=== PATIENT | male | born 1980 | race Caucasian/White ===

== ENCOUNTER → 2020-10-16 10:16 | Outpatient (BNVA) | payer SELFPAY | PROVIDERS: Visit Provider Orthopaedic Surgery | DX: M54.5 Low back pain (principal); M47.897 Other spondylosis, lumbosacral region | CPT/HCPCS: 72110 ==

== ENCOUNTER 2020-10-29 06:00 | Outpatient (RCR) | payer OTHER, SELFPAY | END 2020-11-13 23:59 | disposition home or self-care (01) | LOC: GPT 06:00 | PROVIDERS: Referring Provider Orthopaedic Surgery; Visit Provider Orthopaedic Surgery | DX: M48.061 Spinal stenosis, lumbar region without neurogenic claudication (principal) | CPT/HCPCS: 97032; 97110; 97161; 97530; 97760 ==

== ENCOUNTER 2020-11-14 06:00 | Outpatient (RCR) | payer OTHER, SELFPAY | END 2020-12-14 23:59 | disposition home or self-care (01) | LOC: GPT 06:00 | PROVIDERS: Referring Provider Orthopaedic Surgery; Visit Provider Orthopaedic Surgery | DX: M48.061 Spinal stenosis, lumbar region without neurogenic claudication (principal) | CPT/HCPCS: 97110; 97164; 97530 ==

== ENCOUNTER 2020-11-21 07:34 | Outpatient (CLI) | payer OTHER, SELFPAY ==
--- NOTE | 2020-11-21 08:00 | MR_ITS ---
WS: [id number] MRI LUMBAR SPINE NONCONTRAST TECHNIQUE: Sagittal T1, T2 and STIR imaging. Axial T1 and T2 imaging. CLINICAL INFORMATION: M54.9 - Dorsalgia, unspecified COMPARISON: None. FINDINGS: Mild lumbar curve. No acute compression. No high-grade central canal stenosis. Disc desiccation worse L5-S1 with mild disc bulging. L1-L2: Normal. L2-L3: Normal. L3-L4: No significant disc bulging. Mild facet arthropathy. Spinal canal and foramen are patent. L4-L5: Mild annular bulging. Mild facet arthropathy. Spinal canal is patent. Mild right and no signif icant left foraminal narrowing. Moderate facet arthropathy. L5-S1: Mild disc bulging with osteophytic ridging. Slight effacement of ventral thecal sac. Tiny shal low central protrusion with a tiny annular fissure. Slight contact of the traversing S1 nerve roots b ilaterally. Foramen are patent. Mild facet arthropathy. Visualized pelvic bony structures: Normal. Paravertebral soft tissues: Normal. Large right renal cyst partially visualized measuring approximately 6.0 x 8.5 cm. Smaller right renal cysts. 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 MR/MR lumbar spine wo con* [id number] IMPRESSION: 1. Mild lumbar curve. No acute compression. No high-grade central canal stenos is. 2. Shallow central protrusion L5-S1 with a tiny annular fissure. Slight contac t of the traversing S1 nerve roots. 3. Mild right L4-5 foraminal narrowing. 4. Mild facet arthropathy L3-L4 and L4-L5. 5. 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 This can be followed up with thoracic spine MRI if indicated. 6. Large right renal cyst partially visualized measuring approximately 6.0 x 8 .5 cm. Smaller right renal cysts.
== END 2020-11-21 07:35 | disposition home or self-care (01) ==
PROVIDERS: Visit Provider Orthopaedic Surgery
DX: M51.27 Other intervertebral disc displacement, lumbosacral region (principal); M47.816 Spondylosis without myelopathy or radiculopathy, lumbar region; M51.24 Other intervertebral disc displacement, thoracic region; N28.1 Cyst of kidney, acquired
CPT/HCPCS: 72148

== ENCOUNTER 2020-12-15 06:00 | Outpatient (RCR) | payer OTHER, SELFPAY | END 2021-01-13 23:59 | disposition home or self-care (01) | LOC: GPT 06:00 | PROVIDERS: Visit Provider Orthopaedic Surgery | DX: M48.061 Spinal stenosis, lumbar region without neurogenic claudication (principal) | CPT/HCPCS: 97110; 97140 ==

== ENCOUNTER → 2020-12-25 08:31 | Outpatient (BNVA) | payer OTHER, SELFPAY | PROVIDERS: Referring Provider Orthopaedic Surgery; Visit Provider Anesthesiology Pain Medicine | DX: G89.29 Other chronic pain (principal); M54.17 Radiculopathy, lumbosacral region; M47.816 Spondylosis without myelopathy or radiculopathy, lumbar region; M79.604 Pain in right leg; M79.605 Pain in left leg; Z87.891 Personal history of nicotine dependence | CPT/HCPCS: 99205 ==

== ENCOUNTER 2021-01-14 06:00 | Outpatient (RCR) | payer SELFPAY | END 2021-01-22 23:59 | disposition home or self-care (01) | LOC: GPT 06:00 | PROVIDERS: Visit Provider Orthopaedic Surgery | DX: M48.061 Spinal stenosis, lumbar region without neurogenic claudication (principal) | CPT/HCPCS: 97110; 97140 ==